=== PATIENT | female | born 1960 | race Caucasian/White ===

== ENCOUNTER 2023-01-18 12:37 | Observation (INO) | payer OTHER, SELFPAY ==
--- NOTE | ~2023-01-18 | CT_ITS ---
EXAMINATION: CT pelvis w con DATE: 01/18/2023 13:53 INDICATION: Left thigh abscess. TECHNIQUE: Computed tomography (CT) of the pelvis was performed with 100 mL Omnipaque 350 intravenous contrast. Automated exposure control and iterative reconstruction technique were employed. The dose- length product was 1273.93 mGy-cm. COMPARISON: None FINDINGS: There is a periumbilical ventral hernia containing fat. Left-sided hydrosalpinx is noted. T here is prominent fat in the inguinal canals that may be hernias. Partially visualized is subcutaneou s fat stranding in left superior posterior thigh. There is moderate lumbar spondylosis. IMPRESSION: 1. Partially visualized subcutaneous fat stranding in left superior posterior thigh, consistent with cellulitis. No drainable abscess. Reviewed, dictated and finalized at location A. IMPRESSION: 1. Partially visualized subcutaneous fat stranding in left superior posterior t high, consistent with cellulitis. No drainable abscess.
[2023-01-18 12:39] VITALS: BP 148/94; PULSE 84; RESP 20; TEMP 36.6; O2SAT 98
--- NOTE | 2023-01-18 12:52 | ED.GENADULT ---
HPI - General Adult General Chief complaint: Skin/Abscess/Foreign Body Stated complaint: L leg boil/abcess/cellulitis Time Seen by Provider: 01/18/23 12:41 History of Present Illness HPI narrative: The patient is a 62-year-old woman otherwise healthy, with no significant past medical history, who presents with a left posterior upper thigh abscess for the last 2 weeks, draining from the posterior-most medial-most aspect of the abscess. She applied warm compresses to the area with drainage. The abscess has gotten bigger. She presents for further evaluation. Does not recall any injuries. May have been an insect bite that got infected. No falls or trauma. No previous similar balls or abscess formation in the past. No history of MRSA. No fevers or chills. No other complaints. Related Data Home Medications Medication Instructions Recorded Confirmed No Home Medications 01/18/23 01/18/23 Allergies Allergy/AdvReac Type Severity Reaction Status Date / Time No Known Allergies Allergy Verified 01/18/23 12:49 Review of Systems Review of Systems: All systems reviewed & are unremarkable except as noted in HPI and below Constitutional: Constitutional: Denies chills, Denies excessive sweating, Denies fatigue, Denies fever(s), Denies headache(s) and Denies weakness Eyes: Eyes: Denies change in vision and Denies photophobia ENT: Denies dysphagia, Denies dizziness, Denies headache(s), Denies lip swelling, Denies nasal congestion, Denies sore throat and Denies tongue swelling Cardiovascular: Cardiovascular: Denies chest pain, Denies syncope, Denies rapid heart rate and Denies dyspnea Respiratory: Respiratory: Denies cough, Denies dyspnea and Denies wheezing Gastrointestinal: Gastrointestinal: Denies abdominal pain, Denies constipation, Denies dysphagia, Denies diarrhea, Denies nausea and Denies vomiting Genitourinary: Genitourinary: Denies hematuria, Denies urinary frequency, Denies dysuria and Denies urinary urgency Musculoskeletal: Musculoskeletal: Denies back pain, Denies myalgias, Denies arthralgias, Denies joint swelling and Denies numbness Integumentary/Breasts: Skin/Breast: Denies pruritus, Denies erythema and Denies rash Comments: Large abscess in left posterior upper thigh with drainage Neurologic: Denies confusion, Denies dizziness, Denies syncope, Denies headache(s), Denies focal weakness, Denies numbness and Denies weakness Psychiatric: Psychiatric: Denies anxiety and Denies confusion Endocrine: Endocrine: Denies excessive sweating and Denies fatigue Hematologic/Lymphatic: Hematologic/Lymphatic: Denies easy bleeding and Denies easy bruising Allergic/Immunologic: Allergic/Immunologic: Denies lip swelling, Denies tongue swelling and Denies wheezing PMFSH Surgical History Surgical History (Updated 01/18/23 @ 15:19 by Xiomara Null APRN) History of total bilateral knee replacement Social History Social History (Updated 01/18/23 @ 15:20 by Xiomara Null APRN) Smoking status: Never smoker Alcohol intake: never Substance use: never Lack of Transportation: No Lack of Food: Never True Current Housing: I Have Housing Concerned About Future Housing: No Difficulty Paying Gas/Electric Bills: No Difficulty Paying for Meds: No Currently Unemployed: No Education: High School Diploma/GED Difficulty w/ Childcare or Family Care: No Spiritual care concerns: No Exam Const: General: healthy appearing, no acute distress, alert and well nourished Nutritional Appearance: well nourished Orientation/consciousness: patient oriented x3 Limitations: no limitations HENMT: Head: normal to inspection Ears: external ears normal Face/Nose/Sinus: normal facial exam Face and sinus: normal facial exam Mouth: Yes moist mucous membranes Throat: posterior oropharynx normal Eyes: Conjunctivae: conjunctivae normal Pupils: Equal, round and reactive pupils present EOM: EOMs intact bi
[2023-01-18 13:08] LABS: Basophils Absolute Auto 0.07 K/mm3 (0.00-0.10); Basophils Percent Auto 0.8 % (0.0-1.0); Eosinophils Absolute Auto 0.25 K/mm3 (0.02-0.50); Hematocrit 39.8 % (35.0-49.0); Hemoglobin 12.9 g/dL (12.0-15.0); Immature Granulocyte Absolute 0.06 K/mm3 (0.00-0.00); Immature Granulocyte Percent A 0.7 % (0.0-0.0); Lymphocytes Absolute Auto 1.35 K/mm3 (1.10-4.50); Lymphocytes Percent Auto 16.2 % (18.0-42.0); Mean Corpuscular HGB Conc 32.4 g/dL (32.0-36.0); Mean Corpuscular Hemoglobin 30.4 pg (27.0-31.0); Mean Corpuscular Volume 93.9 fL (78.0-102.0); Mean Platelet Volume 9.9 fl (9.2-11.8); Monocytes Absolute Auto 0.54 K/mm3 (0.10-0.90); Monocytes Percent Auto 6.5 % (2.0-11.0); Neutrophils Absolute Auto 6.1 K/mm3 (1.7-7.2); Neutrophils Percent Auto 72.8 % (50.0-70.0); Platelet Count Result 277 K/mm3 (150-420); Red Blood Count 4.24 M/mm3 (4.20-5.40); Red Cell Distribution Width 12.5 % (11.6-14.4); White Blood Count 8.3 K/mm3 (4.8-10.8)
[2023-01-18] MEDS: SODIUM CHLORIDE 0.9% IV 1,000 ML 999 ML IV CONT (13:10)
[2023-01-18] MEDS: MORPHINE SULFATE (*CRX) 4 MG/ML INJ IV PUSH (13:11)
[2023-01-18 13:25] LABS: Alanine Aminotransferase 19 U/L (14-59); Albumin Level 2.9 g/dL (3.4-5.0); Alkaline Phosphatase 109 U/L (46-116); Anion Gap 8 mmol/L (8-16); Aspartate Amino Transferase 14 U/L (15-37); Bilirubin,Total 0.3 mg/dL (0.00-1.00); Blood Urea Nitrogen 10 mg/dL (7-18); Calcium 9.5 mg/dL (8.5-10.1); Carbon Dioxide 30 mmol/L (21-32); Chloride 104 mmol/L (98-108); Estimated CRCL calculation 75 ml/min; Estimated Glomerular Filt Rate > 60; Glucose 102 mg/dL (70-99); Osmolality Calculated 293 mOsm/kg (285-295); Potassium 3.7 mmol/L (3.5-5.1); Sodium 142 mmol/L (136-145); Total Protein 8.7 g/dL (6.4-8.2)
[2023-01-18 13:30] LABS: Lactic Acid Reflex 0.6 mmol/L (0.4-2.0)
[2023-01-18 14:59] VITALS: BP 140/88; PULSE 88; RESP 20; O2SAT 98
--- NOTE | 2023-01-18 15:12 | PM.IMHP ---
H&P: HPI History of Present Illness Date/Time: 01/18/23 15:12 Chief Complaint: Abscess Narrative: Ms. Escobedo is a 62-year-old female who presented to emergency room with complaints of a ?boil? that has been present on the left posterior thigh for 2 weeks. Patient states that she has had 3-4 boys old over the last year and 2 weeks ago she noticed an area to her left posterior thigh that she thought may be a boil and she scratched at the area. Patient states that she did not noted any drainage but then she noted over the next few days increasing redness and warmth to the area. Patient states there was no drainage from the area and she felt that there was drainage trapped under the skin so she used Epsom salt and water and soak the area with a wash rag. Patient states that then began to drain and she applied Neosporin to the area. Patient states that the area would drain on occasion, but she is unsure of the color of the drainage. Patient denies any fever or chills. Patient denies calling her primary care for any antibiotics and states she did not have any antibiotics at home to take. Patient states he that the area is very firm to touch, warm, and painful at times. Patient denies any nausea, vomiting, diarrhea, dysuria, hematuria, frequency, or urgency. Patient states she has taken [id number] pain relievers to help with some of the pain. Patient states she does not take any medications at home and she has not been diagnosed with hypertension, diabetes mellitus, dyslipidemia, any thyroid issues, or MRSA. Patient states her only past medical history is when she had bilateral total knee replacements. Review of Systems Review of Systems: A 12 point review of systems was completed with patient all pertinent positive and negative per HPI the remainder are unremarkable. [facility] Surgical History Surgical History (Updated 01/18/23 @ 15:19 by Xiomara Null APRN) History of total bilateral knee replacement Social History Social History (Updated 01/18/23 @ 15:20 by Xiomara Null APRN) Smoking status: Never smoker Alcohol intake: never Substance use: never Lack of Transportation: No Lack of Food: Never True Current Housing: I Have Housing Concerned About Future Housing: No Difficulty Paying Gas/Electric Bills: No Difficulty Paying for Meds: No Currently Unemployed: No Education: High School Diploma/GED Difficulty w/ Childcare or Family Care: No Spiritual care concerns: No Meds Home Medications and Allergies Home Medications Medication Instructions Recorded Confirmed Type No Home Medications 01/18/23 01/18/23 History Allergies Allergy/AdvReac Type Severity Reaction Status Date / Time No Known Allergies Allergy Verified 01/18/23 12:49 Vital Signs Vital Signs - 24 hr 01/18/23 12:39 01/18/23 14:59 Temperature 36.6 C Pulse Rate 84 88 Respiratory Rate 20 20 Blood Pressure 148/94 H 140/88 Pulse Oximetry 98 98 Oxygen Delivery Room Air Room Air Exam Narrative: Constitutional: Patient is a 62-year-old morbidly obese female who is in no acute distress. Patient is alert and oriented x3 HEENT: Moist mucous membranes. No scleral icterus. No lymphadenopathy. Neck: No carotid bruits noted no JVD noted Lungs: Lung sounds are clear to auscultation bilaterally. No accessory muscle use. No rhonchi, rales, or wheezes noted. Cardiovascular: Apical pulse is regular rate and rhythm. S1-S2 noted, no S3 or S4 noted. No gallops, murmurs, or rubs noted. Abdomen: Soft, obese, and nontender. No palpable masses. Extremities: No edema. Patient has a large area of erythema to left posterior thigh that begins at the buttock crease and extends down to mid thigh. Skin: Patient has a large area of erythema to left posterior thigh that begins at the buttock crease and extends down to mid thigh. The area of erythema is warm to touch with no fluctuance noted. Patient states the
--- NOTE | 2023-01-18 15:28 | ADMGEN ---
This patient, Rama Esocbedo, was admitted to 2nd Floor Room 205-2. Patient/family oriented to hospital policies and general routines including ID bracelet, bed and alarms, visiting hours, pain management, procedures, bathroom and other care routines, personal items, smoking policy, room service/diet, and visiting hours. Information on how to activate the Rapid Response Team has been discussed. Patient/Family are encouraged to report perceived risks to care and to ask questions if they do not understand what they are told or what they should do.
[2023-01-18 15:30] VITALS: BMI 47.3
[2023-01-18 15:52] VITALS: BP 120/73; PULSE 80; RESP 14; TEMP 36.4; O2SAT 97
[2023-01-18] MEDS: CEFEPIME 2 GM/NS 50 ML 2 GM/50 ML BAG IVPB (16:37)
[2023-01-18 20:00] VITALS: PULSE 80; RESP 14; O2SAT 97
[2023-01-19] VITALS: BP 119/67; PULSE 78; RESP 17; TEMP 36.4; O2SAT 97
[2023-01-19] MEDS: CEFEPIME 2 GM/NS 50 ML 2 GM/50 ML BAG IVPB (03:06)
[2023-01-19 05:41] LABS: Basophils Absolute Auto 0.07 K/mm3 (0.00-0.10); Basophils Percent Auto 0.8 % (0.0-1.0); Eosinophils Absolute Auto 0.25 K/mm3 (0.02-0.50); Hematocrit 35.4 % (35.0-49.0); Hemoglobin 11.7 g/dL (12.0-15.0); Immature Granulocyte Absolute 0.03 K/mm3 (0.00-0.00); Immature Granulocyte Percent A 0.4 % (0.0-0.0); Lymphocytes Absolute Auto 1.45 K/mm3 (1.10-4.50); Lymphocytes Percent Auto 17.1 % (18.0-42.0); Mean Corpuscular HGB Conc 33.1 g/dL (32.0-36.0); Mean Corpuscular Hemoglobin 30.9 pg (27.0-31.0); Mean Corpuscular Volume 93.4 fL (78.0-102.0); Mean Platelet Volume 9.9 fl (9.2-11.8); Monocytes Absolute Auto 0.54 K/mm3 (0.10-0.90); Monocytes Percent Auto 6.4 % (2.0-11.0); Neutrophils Absolute Auto 6.1 K/mm3 (1.7-7.2); Neutrophils Percent Auto 72.3 % (50.0-70.0); Platelet Count Result 255 K/mm3 (150-420); Red Blood Count 3.79 M/mm3 (4.20-5.40); Red Cell Distribution Width 12.5 % (11.6-14.4); White Blood Count 8.5 K/mm3 (4.8-10.8)
[2023-01-19 05:50] LABS: Anion Gap 7 mmol/L (8-16); Blood Urea Nitrogen 8 mg/dL (7-18); Calcium 8.8 mg/dL (8.5-10.1); Carbon Dioxide 29 mmol/L (21-32); Chloride 104 mmol/L (98-108); Estimated CRCL calculation 73 ml/min; Estimated Glomerular Filt Rate > 60; Glucose 97 mg/dL (70-99); Osmolality Calculated 288 mOsm/kg (285-295); Potassium 3.7 mmol/L (3.5-5.1); Sodium 140 mmol/L (136-145)
[2023-01-19 07:55] VITALS: BP 113/73; PULSE 84; RESP 14; TEMP 36.4; O2SAT 94
[2023-01-19] MEDS: ENOXAPARIN 40 MG/0.4 ML SYRINGE SUB-Q (08:40)
--- NOTE | 2023-01-19 09:55 | PC.NURSE ---
Patient's IV leaking. Electro Tech attempted new IV start x2 and was unsuccessful. Electro Tech asked charge nurse to place new IV site.
--- NOTE | 2023-01-19 10:24 | PC.NURSE ---
CHIEF CONTRACT OFFICER notified that preliminary results are in for wound culture.
--- NOTE | 2023-01-19 12:16 | PM.DS ---
DS: Admitting Diagnosis Discharge Date 01/19/2023 Admitting Diagnosis Abscess DS: Discharge Diagnosis Discharge Diagnosis Plan See Hospital Course DS: Summary Hospital Course Reason for hospitalization: Cellulitis Hospital Course: Ms. Escobedo is a 62-year-old female who presented to the hospital with complaints of possible abscess to her left posterior upper thigh. Patient states that prior to being seen in the emergency room she had noticed what she thought was a ?boil? to her left posterior thigh approximately 2 weeks before coming to emergency room. Patient states that the area initially had increasing redness and then she soak the area with Epson salt and it started to drain. Patient states she then applied Neosporin and the drainage charted to subside. Upon evaluation emergency room patient was noted to have a very large area of erythema and the emergency room physician thought there was an area of fluctuance and he attempted to perform an I&D and he stated he did remove a minimal amount of fluid. Blood cultures were performed and wound culture was performed. Wound culture did show a heavy growth of Staph aureus and susceptibility is pending at this time. During hospitalization patient received vancomycin and cefepime and had significant improvement of erythema overnight. After discussing case with Infectious Disease pharmacist it was thought that Bactrim would be the best option for antibiotic for patient to be sent home on. Patient was sent home with Bactrim and is to finish a 7 day course. As already stated susceptibility is pending from wound culture. Blood cultures that were drawn on 01/18/2023 showed no growth to date. At this point time patient has had improvement and is ready for discharge home. Patient will need to follow up with primary care provider within 1 week for re-evaluation of her cellulitis. Status at Discharge Functional status at discharge: independent ambulation Overall status at discharge: patient is back to baseline Time Spent with Patient Time attestation: Total time spent providing and/or coordinating discharge services:30 Exam Narrative: Constitutional:? Patient is a 62-year-old morbidly obese female who is in no acute distress.? Patient is alert and oriented x3 HEENT:? Moist mucous membranes.? No scleral icterus.? No lymphadenopathy. Neck:? No carotid bruits noted no JVD noted Lungs:? Lung sounds are clear to auscultation bilaterally.? No accessory muscle use.? No rhonchi, rales, or wheezes noted. Cardiovascular:? Apical pulse is regular rate and rhythm.? S1-S2 noted, no S3 or S4 noted.? No gallops, murmurs, or rubs noted. Abdomen:? Soft, obese, and nontender.? No palpable masses. Extremities:? No edema.? Patient has a large area of erythema to left posterior thigh that begins at the buttock crease and extends down towards mid thigh and to midline of left posterior thigh, has significant improvement from yesterday. Skin: Patient has a large area of erythema to left posterior thigh that begins at the buttock crease and extends down towards mid thigh and to midline of left posterior thigh, has significant improvement from yesterday. Area is not significantly warm to touch. No drainage noted Neurological:? No focal neurological deficits.? Cranial nerves II-XII grossly intact. Psychiatric:? Cooperative, appropriate mood, and affect DS: Data Data Completed and Pending Pending studies at discharge: Blood cultures show no growth to date, but final blood cultures are pending. Wound culture shows heavy growth of Staph aureus with sensitivities pending. Labs on day of discharge: Labs from last 24 hours 01/19/23 01/18/23 05:22 12:59 WBC 8.5 8.3 RBC 3.79 L 4.24 Hgb 11.7 L 12.9 Hct 35.4 39.8 MCV 93.4 93.9 MCH 30.9 30.4 MCHC 33.1 32.4 RDW 12.5 12.5 Plt Count 255 277 MPV 9.9 9.9 Immature Gran % (Auto) 0.4 H 0.7 H Neut % (Auto) 72.3 H 72.8 H Lymph % (Auto) 17.1 L 16.2 L
--- NOTE | 2023-01-19 13:15 | PC.NURSE ---
IV site discontinued in anticipation of discharge.
--- NOTE | 2023-01-19 13:25 | PC.NURSE ---
Discharge instructions given to patient. Patient voiced understanding. Personal belongings sent home with patient. Patient left unit on foot accompanied by mortgage or loan underwriter. Patient left hospital grounds in privately owned vehicle. Patient stated that she would not be able to keep appointment with PCP scheduled for her. Polymer Scientist advised patient to be sure to call PCP office and reschedule.
--- NOTE | 2023-01-21 10:03 | PC.NURSE ---
Invalid phone number for discharge call back.
== END 2023-01-19 13:25 | disposition home or self-care (01) ==
LOC: CHSED 14:22 → CHS2ND 14:37
PROVIDERS: Nurse Practitioner Adult Health; Admitting Provider Internal Medicine; Emergency Provider Emergency Medicine; PCP Family Medicine; Visit Provider Internal Medicine
DX: L03.116 Cellulitis of left lower limb (principal); E66.01 Morbid (severe) obesity due to excess calories; Z96.653 Presence of artificial knee joint, bilateral
CPT/HCPCS: 10060; 36415; 72193; 80048; 80053; 83036; 83605; 83735; 85025; 87040; 87070; 87147; 87186; 87205; 96365; 96366; 96367; 96372; 96375; 99285; G0378; J0692; J1650; J2270; J2543; J3370; J7030; Q9967

== ENCOUNTER 2023-09-03 14:12 | Emergency (ER) | payer OTHER, SELFPAY ==
--- NOTE | 2023-09-03 14:15 | ED.SKABFB ---
HPI - Skin/Abscess/Foreign Bdy General Chief complaint: Skin/Abscess/Foreign Body Stated complaint: Rt leg knot Time Seen by Provider: 09/03/23 14:14 History of Present Illness HPI narrative: Patient is a 62 year old female here with redness over her right arellano. She notes that about 1.5-2 weeks ago she had some itching below her right knee. She notes that she was itching it causing some superficial scabbing. About 1 week ago she started noticing an area of redness and tenderness mid arellano near the area of scabbing. The area of redness has progressively grown in size and now involves a large portion of her arellano. She does note some pain, worse with walking, located in the superior aspect of the redness. She has chronic swelling in this leg which is always present after having a knee replacement years ago on this leg. She states she has had similar episodes in the past, last was last summer and she spent one night here in the hospital with IV antibiotics and she was then discharge on bactrim. She notes the bactrim cleared the previous infection up well. She denies fever or chills. No malaise. No history of PE or DVT. No calf pain. Related Data Allergies Allergy/AdvReac Type Severity Reaction Status Date / Time No Known Allergies Allergy Verified 01/22/23 08:03 Review of Systems Review of Systems: All systems reviewed & are unremarkable except as noted in HPI and below PMFSH Surgical History Surgical History History of total bilateral knee replacement Social History Social History Smoking status: Never smoker Alcohol intake: never Substance use: never Lack of Transportation: No Lack of Food: Never True Current Housing: I Have Housing Concerned About Future Housing: No Difficulty Paying Gas/Electric Bills: No Difficulty Paying for Meds: No Currently Unemployed: No Education: High School Diploma/GED Difficulty w/ Childcare or Family Care: No Spiritual care concerns: No Exam Narrative: GENERAL: Well-appearing, well-nourished, and in no acute distress. HEAD: Normocephalic, atraumatic. EYES: PERRLA and EOMI. ENT: Nares clear. Mucous membranes moist. NECK: Supple. CHEST: Clear to auscultation. No respiratory distress. HEART: Regular rate and rhythm. Normal peripheral pulses. ABDOMEN: Soft, nontender, nondistended. EXTREMITIES: Normal range of motion. No edema. SKIN: Warm, dry, area of 7x10 cm of erythema and warmth to anterior lower left leg. No blistering, no crepitus. 2x3 cm area of induration at the superior aspect of the affected area. No fluctance. She does have an area proximal and lateral to the affected area, just below her knee that has superficial scabbing and dried skin consistent with excoriations. No drainage from this area. NEURO: No focal deficits. Alert and oriented x3. PSYCH: Normal mood and affect. Course Course Emergency Course: Chart review performed. Patient here with leg redness. Triage vitals normal. DC summary reviewed form hospitalization in December 2022 at this hospital. She was admitted for cellulitis and leg wound, had 1 day of IV antibiotics and improved, was discharged on bactrim after wound culture grew staph aureus. Patient seen evaluated, nontoxic appearing. She has an area of about 7x10 cm of erythema and warmth to the anterior arellano on the right leg distal to the knee. Bedside ultrasound performed by myself which revealed a <1 cm circular area of fluid collection consistent with possible abscess. She is tender in this area with some induration, minimal fluctuance. I offered a needle aspiration vs I&D to the patient, she refused. She would prefer to do a trial of oral antibiotics and monitor the lesion closely with her primary doctor. I did notify her that there is a chance that this area does not drain on its own, could get worse and cause her significant pain
[2023-09-03 14:19] VITALS: BP 135/98; PULSE 88; RESP 19; TEMP 36.8; O2SAT 94
== END 2023-09-03 14:52 | disposition home or self-care (01) ==
LOC: CHSED 14:50
PROVIDERS: Emergency Provider Student in an Organized Health Care Education/Training Program; PCP Family Medicine
DX: L02.416 Cutaneous abscess of left lower limb (principal); L03.116 Cellulitis of left lower limb
CPT/HCPCS: 99283

== ENCOUNTER 2024-04-10 17:02 | Emergency (ER) | payer OTHER, SELFPAY ==
[2024-04-10 17:04] VITALS: BP 136/88; PULSE 109; RESP 20; TEMP 36.6; O2SAT 98
--- NOTE | 2024-04-10 17:30 | ED.SKABFB ---
HPI - Skin/Abscess/Foreign Bdy General Chief complaint: Skin/Abscess/Foreign Body Stated complaint: rt. leg pain Time Seen by Provider: 04/10/24 17:29 Source: patient Mode of arrival: ambulatory Limitations: no limitations History of Present Illness HPI narrative: 63-year-old female via right leg fracture many years ago complicated by lymphedema with recurrent lower extremity infections presents to the ED with -- right arellano erythema / redness and pain. No recent injury. No fever or chills. MD complaint: other ( Right leg cellulitis) Onset (ago): day(s) ( 2) Tetanus up to date: no Location: RLE Severity: moderate Quality: aching Pain Consistency: constant Relieving factors: none Exacerbating factors: none Associated symptoms: denies other symptoms Treatments prior to arrival: none Related Data Allergies Allergy/AdvReac Type Severity Reaction Status Date / Time No Known Allergies Allergy Verified 04/10/24 17:06 Review of Systems Review of Systems: All systems reviewed & are unremarkable except as noted in HPI and below Constitutional: Constitutional: Reports as per HPI and Reports no additional constitutional complaints Eyes: Eyes: Reports as per HPI and Reports no additional eye complaints ENT: Reports system reviewed and no additional complaints, except as documented and Reports as per HPI Cardiovascular: Cardiovascular: Reports as per HPI and Reports no additional cardiovascular complaints Respiratory: Respiratory: Reports as per HPI and Reports no additional respiratory complaints Gastrointestinal: Gastrointestinal: Reports as per HPI and Reports no additional gastrointestinal complaints Genitourinary: Genitourinary: Reports no additional female genitourinary complaints and Reports as per HPI Musculoskeletal: Musculoskeletal: Reports no additional musculoskeletal complaints and Reports as per HPI Integumentary/Breasts: Skin/Breast: Reports system reviewed and no additional complaints, except as docu Comments: right arellano erythema /pain right lower extremity no edema Neurologic: Reports system reviewed and no additional complaints, except as documented and Reports as per HPI Psychiatric: Psychiatric: Reports no additional psychiatric complaints and Reports as per HPI Endocrine: Endocrine: Reports no additional endocrine complaints and Reports as per HPI Hematologic/Lymphatic: Hematologic/Lymphatic: Reports no additional hematologic/lymphatic complaints and Reports as per HPI Allergic/Immunologic: Allergic/Immunologic: Reports no additional allergic/immunologic complaints and Reports as per HPI [facility] Past Medical History Medical History (Updated 04/10/24 @ 17:45 by Apollo Dove MD) Lymphedema Surgical History Surgical History History of total bilateral knee replacement Social History Social History Smoking status: Never smoker Alcohol intake: never Substance use: never Lack of Transportation: No Lack of Food: Never True Current Housing: I Have Housing Concerned About Future Housing: No Difficulty Paying Gas/Electric Bills: No Difficulty Paying for Meds: No Currently Unemployed: No Education: High School Diploma/GED Difficulty w/ Childcare or Family Care: No Spiritual care concerns: No Exam Narrative: tachycardia afebrile Const: General: no acute distress Nutritional Appearance: well nourished Orientation/consciousness: patient oriented x3 Limitations: no limitations HENMT: Head: normal to inspection Ears: external ears normal Face/Nose/Sinus: Normal external nose present Face and sinus: normal facial exam Mouth: Yes Normal oral and palatal mucosa present Throat: posterior oropharynx normal Eyes: Conjunctivae: conjunctivae normal EOM: EOMs intact bilaterally Direct Ophthalmoscopy: no photophobia Neck: Neck: normal
[2024-04-10] MEDS: AMOXICILLIN/CLAVULANATE K 875-125 MG TAB 1 TABLET PO (17:51)
[2024-04-10] MEDS: TETANUS,DIPHTHERIA,AC PERTUSSIS ADULT 0.5 ML (ADACEL) IM (18:04)
[2024-04-10 18:10] VITALS: BP 130/85; PULSE 95; RESP 16; TEMP 36.6; O2SAT 100
== END 2024-04-10 18:10 | disposition home or self-care (01) ==
PROVIDERS: Emergency Provider Internal Medicine Critical Care Medicine; PCP Family Medicine
DX: I89.0 Lymphedema, not elsewhere classified (principal); L03.115 Cellulitis of right lower limb; Z23 Encounter for immunization
CPT/HCPCS: 90471; 90715; 99283; A9270

== ENCOUNTER 2024-09-27 15:06 | Outpatient (CLI) | payer OTHER, SELFPAY ==
[2024-09-27 15:19] LABS: Basophils Absolute Auto 0.06 K/mm3 (0.00-0.10); Eosinophils Absolute Auto 0.11 K/mm3 (0.02-0.50); Eosinophils Percent Auto 1.8 % (1.0-6.0); Hematocrit 37.6 % (35.0-49.0); Hemoglobin 12.6 g/dL (12.0-15.0); Immature Granulocyte Absolute 0.02 K/mm3 (0.00-0.00); Immature Granulocyte Percent A 0.3 % (0.0-0.0); Lymphocytes Absolute Auto 1.68 K/mm3 (1.10-4.50); Lymphocytes Percent Auto 26.9 % (18.0-42.0); Mean Corpuscular HGB Conc 33.5 g/dL (32-36); Mean Corpuscular Hemoglobin 32.1 pg (27.0-31.0); Mean Corpuscular Volume 95.9 fL (78.0-102.0); Mean Platelet Volume 10.9 fl (9.2-11.8); Monocytes Absolute Auto 0.47 K/mm3 (0.10-0.90); Monocytes Percent Auto 7.5 % (2.0-11.0); Neutrophils Absolute Auto 3.91 K/mm3 (1.70-7.20); Neutrophils Percent Auto 62.5 % (50.0-70.0); Platelet Count Result 203 K/mm3 (150-420); Red Blood Count 3.92 M/mm3 (4.20-5.40); Red Cell Distribution Width 13.2 % (11.6-14.4); White Blood Count 6.3 K/mm3 (4.8-10.8)
[2024-09-27 15:45] LABS: Alanine Aminotransferase 39 U/L (14-59); Albumin Level 3.6 g/dL (3.4-5.0); Alkaline Phosphatase 112 U/L (46-116); Anion Gap 8 mmol/L (4-12); Aspartate Amino Transferase 29 U/L (15-37); Bilirubin,Total 0.4 mg/dL (0.00-1.00); Blood Urea Nitrogen 20 mg/dL (7-18); Calcium 9.8 mg/dL (8.5-10.1); Carbon Dioxide 31 mmol/L (21-32); Chloride 106 mmol/L (98-108); Cholesterol 228 mg/dL (0-200); Estimated Glomerular Filt Rate > 60; Glucose 89 mg/dL (70-99); HDL Direct 61 mg/dL (40-60); LDL Cholesterol Calculated 151 mg/dL (<130); Osmolality Calculated 301 mOsm/kg (285-295); Potassium 4.7 mmol/L (3.5-5.1); Sodium 145 mmol/L (136-145); Total Protein 7.1 g/dL (6.4-8.2); Triglycerides 80 mg/dL (0-150)
[2024-09-27 15:56] LABS: Thyroid Stimulating Hormone Reflex 1.98 u/IU/mL (0.36-3.74)
--- OUTSIDE RECORDS SUMMARY | 2024-09-27 16:32 | XMS_ITS | Clinical Summary ---
Author Organization [facility] [address] [facility] [address] [facility] Address [address] [place] [address] Care Team Providers Care Florist Designer Name Role Phone Unknown, Notinfile Primary Care Provider Unavail able Allergies No known active allergies Medications No known medications Active Problems No known active problems Surgical History Surgery Date Site/Laterality Comments REPLACEMENT TOTAL KNEE BILATERAL Social History Tobacco Use Types Packs/Day Years Used Date Smoking Tobacco: Never Personal Safety Answer Date Recorded Getting School Help Needed Not on file 09/02 Comments Unknown Sex and Gender Information Value Date Recorded Sex Assigned at Not on file Legal 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 Gender Identity Not on file Sexual Orientation Not on file Obstetrics History Last Filed Vital Signs Vital Sign Reading Time Taken Comments Blood Pressure 124/80 10/30/2022 4:27 PM CDT Pulse 103 10/30/2022 4:27 PM CDT Temperature 36.6 C (97.9 F) 10/30/2022 4:27 PM CDT Respiratory Rate 20 10/30/2022 4:27 PM CDT Oxygen Saturation 97% 10/30/2022 4:27 PM CDT Inhaled Oxygen Concentration - - Weight 103.4 kg (228 lb) 10/30/2022 4:27 PM CDT Height 160 cm (5' 3 ) 10/30/2022 4:27 PM CDT Body Mass Index 40.39 10/30/2022 4:27 PM CDT Plan of Treatment Health Maintenance Due Date Last Done Comments Breast Cancer Screening-Mammogram 1960 Cervical Cancer Screening 1960 Colon Cancer Screening-Colonoscopy 1960 Depression Screening 1960 Hepatitis C Screening 1960 DTaP/Tdap/Td Vaccine (1 - Tdap) 09/15/1971 Hepatitis B Screening 1978 Regular Well Visit/Exam 18-64 1978 Zoster Vaccine (1 of 2) 2010 Influenza Vaccine (Season Ended) 2025 06/21/19 20 Pneumococcal vaccine <65 Aged Out No longer eligible based on patient's age to complete this topic Insurance [facility] [employer] [facility]/PPO Address: [place] [address] Care Teams Florist Designer Relationship Specialty Start Date End Date Unknown, Notinfile PCP - General 12/31/21
--- OUTSIDE RECORDS SUMMARY | 2024-09-27 16:32 | XMS_ITS | Referral Summary ---
Author Organization [facility] [address] [facility] Address [address] [place] [address] Care Team Providers Care Prepper Name Role Phone Unknown, Notinfile Primary Care Provider Unavail able Allergies No known active allergies Medications No known medications Active Problems No known active problems Social History Tobacco Use Types Packs/Day Years Used Date Smoking Tobacco: Never Personal Safety Answer Date Recorded Getting School Help Needed Not on file 09/02 Comments Unknown Sex and Gender Information Value Date Recorded Sex Assigned at Not on file Legal 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
--- OUTSIDE RECORDS SUMMARY | 2024-09-27 16:32 | XMS_ITS | Clinical Summary ---
Author Organization [facility] Address [address] [place] [address] Care Team Providers Care Mica Sizer Name Role Phone New Referring, Provider Primary Care Provider Un available Allergies No known active allergies Medications hydrocodone-helen taminophen 7.5-325 MG tabletIndicatio ns:Chronic Pain Take 1 tablet by mouth every 6 (six) hours as needed for Pain. Indications: Chronic Pain 30 tablet 07/28/2019 Active Active Problems Problem Noted Date Diagnosed Date S/P total knee arthroplasty, bilateral 9 Osteoarthritis of knees, bilateral 06/19/2019 Resolved Problems Problem Noted Date Diagnosed Date Resolved Date Primary osteoarthritis of left knee 12/19/2018 06/20/2019 Primary osteoarthritis of right knee 12/19/2018 06/20/2019 Immunizations Name Administration Dates Next Due Afluria 36 MONTHS+ (Prefilled Syringe IIV4) 06/2019 Family History Medical History Relation Comments Diabetes Father Heart Disease Father Cancer Mother Relation Status Comments Father Alive Mother Social History Tobacco Use Types Packs/Day Years Used Date Smoking Tobacco: Never Smokeless Tobacco: Never Alcohol Use Standard Drinks/Week Comments No 0 (1 standard drink = 0.6 oz pur e alcohol) AUDIT-C Answer Date Recorded Frequency of Alcohol Consumption Never 12/19/2018 Average Number of Drinks Not on file 019 Frequency of Binge Drinking Not on file 06/2018 Comments Unknown Sex and Gender Information Value Date Recorded Sex Assigned at Not on file Legal Sex Female 2:36 PM CDT Gender Identity Not on file Sexual Orientation Not on file Last Filed Vital Signs Vital Sign Reading Time Taken Comments Blood Pressure 105/69 06/22/2019 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 Pulse 105 06/22/2019 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 Temperature 37.3 C (99.2 F) 06/22/2019 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 Respiratory Rate 20 06/22/2019 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 Oxygen Saturation 95% 06/22/2019 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 Inhaled Oxygen Concentration - - Weight 96.2 kg (212 lb) 07/28/2019 11:22 AM METABOLIC SPECIALIST Height 160 cm (5' 3 ) 07/28/2019 11:22 AM METABOLIC SPECIALIST Body Mass Index 37.55 07/28/2019 11:22 AM METABOLIC SPECIALIST Plan of Treatment Health Maintenance Due Date Last Done Comments Cervical Cancer Screening Pa p Smear (Age 30 to 64) Every 3 Years 1960 Colorectal Cancer Screening Colonoscopy (10 Years) 1960 Annual Physical 09/15/1963 Hepatitis C 1978 DTaP, Tdap and Td Vaccines ( 1 - Tdap) 09/15/1979 Cervical Cancer Screening Pa p with HPV Testing (Age 30 to 64) Every 5 Years 1990 Cervical Cancer Screening with HPV 1990 Mammogram Screening 2000 Zoster Vaccines (1 of 2) 2010 COVID-19 Vaccine (2023-2 5 season) 2024 RSV Immunization or 60+ Years (1 - 1-dose 75+ series) 09/15/2035 Meningococcal B Vaccine Aged Out No l onger eligible based on patient's age to complete this topic Meningococcal Vaccine Aged Out No skyler codi eligible based on patient's age to complete this topic Pneumococcal Vaccine: Pediat rics (0 to 5 Years) and At-Risk Patients (6 to 64 Years) Aged Out No longer eligible b ased on patient's age to complete this topic RSV Immunizations Under 20 Months Aged Out No longer eligible based on patient's age to complete this topic Medical Devices Implanted Type Area Executive Vice President Device Identifier Shelf Expiration Date Model / Serial / Lot Tray Depuy Sigma Tibial Size 2.5 - [id number] Implanted:Qty: 1 on 06/19/2019 by Juan Burton MD at [facility] Left: Knee DEPUY 02/18/2029 [id number] / / [id number] Femur Posterior Stabilized Depuy Size 2.5 Right - [id number] Implanted:Qty: 1 on 06/19/2019 by Juan Burton MD at [facility] Right: Knee DEPUY 07/21/2026 [id number] / / [id number] Dome Depuy Oval Patella 3-Peg 32mm - [id number] Implanted:Qty: 1 on 06/19/2019 by Juan Burton MD at [facility] Right: Knee DEPUY 10/19/2023 [id number] / / [id number] Insert Depuy Sigma Tibial Size 2.5 12.5mm - [id number] Implanted:Qty: 1 on 06/19/2019 by Juan Burton MD at [facility] Right: Knee DEPUY 06/20/2023 [id number] / / [id number] Femur Posterior Stabilized Depuy Size 3 Left - [id number] Implanted:Qty: 1 on 06/19/2019 by Juan Burton MD at [facility] Left: Knee DEPUY 01/18/2029 [id number] / / [id number] Sigma Modular Stem Cemented Implanted:Qty: 1 on 06/19/2019 by Juan Burton MD at [facility] Left: Knee [employer] 12/18/2028 [id number] / / [id number] Dome Depuy Oval Patella 3-Peg 32mm - [id number] Implanted:Qty: 1 on 06/19/2019 by Juan Burton MD at [facility] Left: Knee DEPUY 01/19/2024 [id number] / / [id number] Insert Depuy Sigma Tibial Size 2.5 12.5mm - [id number] Implanted:Qty: 1 on 06/19/2019 by Juan Burton MD at [facility] Left: Knee DEPUY 02/19/2024 [id number] / / [id number] Cement Simplex Hv W/Gentamicin - [id number] Implanted:Qty: 2 on 06/19/2019 by Juan Burton MD at [facility] Left: Knee [employer] 01/18/2021 [id number] / / [id number] Cement Simplex Hv W/Gentamicin - [id number] Implanted:Qty: 2 on 06/19/2019 by Juan Burton MD at [facility] Right: Knee [employer] 01/18/2021 [id number] / / [id number] Sigma Modular Stem Cemented Implanted:Qty: 1 on 06/19/2019 by Juan Burton MD at [facility] Right: Knee [employer] 12/18/2028 [id number] / / [id number] Tray Depuy Sigma Tibial Size 2.5 - [id number] Implanted:Qty: 1 on 06/19/2019 by Juan Burton MD at [facility] Right: Knee [employer]PUY 01/18/2029 [id number] / / [id number] Insurance Advance Directives * Full Code (Latest Code Status on File) Date Activated Date Inactivated Comments 06/20/2019 12:21 AM 06/22/2019 1:06 PM Care Teams Mica Sizer Relationship Specialty Start Date End Date New Referring, Provider PCP - General UNKNOWN PHYSICIAN SPECIALTY 12/19/18
== END 2024-09-27 15:07 | disposition home or self-care (01) ==
LOC: CHSLAB 15:07
PROVIDERS: PCP Nurse Practitioner Family; Visit Provider Nurse Practitioner Family
DX: Z00.00 Encounter for general adult medical examination without abnormal findings (principal)
CPT/HCPCS: 36415; 80053; 80061; 83036; 84443; 85025

== ENCOUNTER 2024-12-08 11:59 | Outpatient (CLI) | payer OTHER, SELFPAY ==
--- NOTE | ~2024-12-08 | MM_ITS ---
EXAMINATION: MM screening clifford BI w deya HISTORY: Screening TECHNIQUE: Craniocaudal and mediolateral oblique 3-D tomosynthesis images were obtained and synthetic 2-D images were generated. CAD analysis was submitted and interpreted. COMPARISON: No prior mammogram is available for comparison at this institution. BREAST PARENCHYMAL COMPOSITION: Not Dense: The breasts are almost entirely fatty. FINDINGS: There is no evidence of suspicious mass, calcification, or architectural distortion to sugg est malignancy in either breast. There has been no suspicious interval change. IMPRESSION: 1. No mammographic evidence of malignancy. 2. Recommend routine screening mammography in one year. BI-RADS Category 1: Negative Reviewed, dictated and finalized at location A.
== END 2024-12-08 12:00 | disposition home or self-care (01) ==
PROVIDERS: PCP Nurse Practitioner Family; Visit Provider Nurse Practitioner Family
DX: Z12.31 Encounter for screening mammogram for malignant neoplasm of breast (principal)
CPT/HCPCS: 77063; 77067